=== PATIENT | male | born 1960 | race Caucasian/White ===

== ENCOUNTER 2020-08-23 23:50 | Inpatient (IN) | payer MEDICARE, MEDICAID, SELFPAY ==
[2020-08-24 00:11] VITALS: BP 165/76; PULSE 80; RESP 15; TEMP 36.9; O2SAT 94
[2020-08-24 00:41] VITALS: BMI 26.6
--- NOTE | 2020-08-24 04:28 | PC.NURSE ---
Skin assessment revealed no wounds or injuries.
[2020-08-24 06:00] VITALS: BP 146/72; PULSE 75; RESP 15; TEMP 36.8; O2SAT 96
[2020-08-24] MEDS: levothyroxine 125 mcg Tablet PO (08:58)
[2020-08-24] MEDS: lisinopril 10 mg Tablet PO (08:58)
--- NOTE | 2020-08-24 09:03 | PC.NURSE ---
refused scheduled Gabapentin, zyprexa, lexapro
[2020-08-24 14:00] VITALS: BP 114/73; PULSE 78; RESP 18; TEMP 36.2; O2SAT 93
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
[2020-08-24 19:48] VITALS: BP 91/55; PULSE 72; RESP 15; TEMP 37; O2SAT 93
[2020-08-24] MEDS: gabapentin 100 mg Capsule 200 MG PO (20:51)
[2020-08-24] MEDS: ARIPiprazole 10 mg Tablet PO (20:51)
[2020-08-24] MEDS: atorvastatin 40 mg Tablet 20 MG PO (20:51)
--- NOTE | 2020-08-25 03:32 | PC.NURSE ---
pm ASSESSMENT PT REPORTS BILATERAL BURNING PAINS IN HIS ANKLES, HE BELIEVES IT IS GOUT HOWEVER, THE FEET ARE CALLOUSED, THE ANKLES APPEAR TO HAVE SOCK LINE EDEMA, AND WHERE ARE SMALL SORES ON THE INSIDE OF BOTH ANKLES THAT APPEAR TO BE FROM THE PATIENT SCRATCHING AT THEM. PT DENIES AH/VH, HE IS IN A JOVIAL MOOD, INTERACTING WITH NURSING STAFF APPROPRIATELY. PT IS UNABLE TO FOCUS WELL DURING CONVERSATION, EXPERIENCING FLIGHT OF IDEAS, AND HIS OPINIONS OFTEN FOLLOW HIS TRAIN OF THOUGHT. PT DENIES SI/HI. V/S ARE WNL;HEART.LUNG SOUNDS ARE WNL. PT DID NOT WANT TO TAKE ABILIFY FOR THE MED NURSE THIS EVENING, HE STATED, IT CAUSES ME TARDIVE DYSKINESIA, BUT FOLLOWED THAT BY ITS NOT LIFELONG, IT CAN STOP. AFTER DISCUSSION, THE PATIENT ALLOWED MED NURSE TO ADMINISTER MEDICATION. PT WENT TO BED, HE HAS RESTED TO THIS POINT IN TIME, WILL CONTINUE TO OBSERVE.
--- NOTE | 2020-08-25 03:55 | PC.NURSE ---
Before administering patient his medication, I wanted to verify that the patient was going to take his medication. I educated him on what medications were and what they treated. I let him know that doctor wanted to start him on Abilify. Patient stated that he would take it , but it gives me Tardive dysconsia .
[2020-08-25 05:50] VITALS: BP 132/85; PULSE 78; RESP 15; TEMP 36.3; O2SAT 92
[2020-08-25] MEDS: gabapentin 100 mg Capsule PO (08:05)
[2020-08-25] MEDS: levothyroxine 125 mcg Tablet PO (08:05)
[2020-08-25] MEDS: ARIPiprazole 10 mg Tablet PO (08:05)
[2020-08-25] MEDS: clotrimazole-betamethasone cream 15gm 1 APPLIC TOPICAL ×2 (08:05→21:39)
[2020-08-25] MEDS: lisinopril 10 mg Tablet PO (08:05)
[2020-08-25] MEDS: escitalopram 10 mg Tablet 20 MG PO (08:05)
--- NOTE | 2020-08-25 13:04 | P.PN_ITS ---
Subjective NPU Subjective: Interval history: Patient is lying in bed after lunch, reports that he feels tired States that he has had some depressive symptoms today, denies any suicidal ideation Denies any auditory or visual hallucinations, denies any delusions Reports being compliant with medication, denies any medication side effects Patient had reported that he would take Abilify and subsequently was agreeable with first dose this morning Per nurse report, occasionally intrusive but improving and redirectable Mental Status Exam MSE Comments: Lying in bed under his covers, calm, cooperative, interactive, good eye contact Psychomotor activity is neither increased nor decreased, no agitation Speech is normal rate, normal volume, spontaneous, not pressured I feel okay, congruent, not labile Alert and oriented to person, type of place, time, not to situation Memory and concentration appear to be fair per interview Thought process, linear, no flight of ideas, no looseness of association Thought content, no stated delusions, does not appear to be attending to any internal stimuli, no suicidal or homicidal ideation Insight and judgment appear to be limited Vitals/I&O/Wt Last Vital Signs Temp 97.3 F L 08/25/20 05:50 Pulse 78 08/25/20 05:50 Resp 15 08/25/20 05:50 BP 132/85 08/25/20 05:50 Pulse Ox 92 08/25/20 05:50 Weight last 48 hrs Weight 88.904 kg A&P Assessment and plan (1) Psychotic disorder: Status: Acute Qualifiers: Psychosis type: unspecified psychosis type Qualified Code(s): F29 - Unspecified psychosis not due to a substance or known physiological condition (2) Cannabis abuse: Status: Acute Additional A&P Information Patient has been agreeable to start Abilify taking his first dose this morning, some improvement in mood, decrease in intrusive behavior CONTINUE current medication, continue to monitor Involuntary Hold Information 96 Hour Hold: 96 Hour Involuntary Admission: No Attestations NPU Medical Necessity Statement*: Continues to require psychiatric hospitalization for medication stabilization, coordination for safe discharge Coding Level of Care 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
[2020-08-25 13:23] VITALS: BP 93/58; PULSE 74; RESP 16; TEMP 36.9; O2SAT 97
[2020-08-25] MEDS: gabapentin 100 mg Capsule 200 MG PO (21:38)
[2020-08-25] MEDS: atorvastatin 40 mg Tablet 20 MG PO (21:38)
[2020-08-25 22:00] VITALS: BP 121/77; PULSE 74; RESP 18; TEMP 36.4; O2SAT 97
[2020-08-26 06:00] VITALS: BP 128/75; PULSE 75; RESP 19; TEMP 36.8; O2SAT 97
[2020-08-26] MEDS: ARIPiprazole 10 mg Tablet PO (09:06)
[2020-08-26] MEDS: lisinopril 10 mg Tablet PO (09:06)
[2020-08-26] MEDS: gabapentin 100 mg Capsule PO (09:06)
[2020-08-26] MEDS: benztropine 1 mg Tablet PO (09:07)
[2020-08-26] MEDS: levothyroxine 125 mcg Tablet PO (09:07)
[2020-08-26] MEDS: escitalopram 10 mg Tablet 20 MG PO (09:07)
--- NOTE | 2020-08-26 11:10 | PM.NPN ---
Subjective NPU Subjective: Interval history: Reports improving mood, denies any interval suicidal ideation Denies any interval irritability or anger Denies any interval psychotic symptoms Reports being compliant with medication and denies any medication side effects Mental Status Exam MSE Comments: Sitting up on his bed, appears stated age, appropriately groomed, calm, cooperative, interactive, good eye contact Psychomotor activity is neither increased nor decreased, no agitation Speech is normal rate, normal volume, spontaneous, not pressured I feel good, full range, not labile Alert and oriented to person, type of place, time, not to situation Memory and concentration appear to be fair per interview Thought process, linear, no flight of ideas, no looseness of association Thought content, no stated delusions, no hallucinations, no suicidal or homicidal ideation Insight and judgment appear to be limited Vitals/I&O/Wt Last Vital Signs Temp 98.2 F 08/26/20 06:00 Pulse 75 08/26/20 06:00 Resp 19 H 08/26/20 06:00 BP 128/75 08/26/20 06:00 Pulse Ox 97 08/26/20 06:00 A&P Assessment and plan (1) Psychotic disorder: Status: Acute Qualifiers: Psychosis type: unspecified psychosis type Qualified Code(s): F29 - Unspecified psychosis not due to a substance or known physiological condition (2) Cannabis abuse: Status: Acute Additional A&P Information Ongoing improvement in mood and psychotic symptoms CONTINUE current medication, continue to monitor Involuntary Hold Information 96 Hour Hold: 96 Hour Involuntary Admission: No Attestations NPU Medical Necessity Statement*: Requires psychiatric hospitalization for medication stabilization, coordination for safe discharge Coding Level of Care Code Acute Circuit Board Inspector for [employer]errero Diagnoses Psychotic disorder F29 Psychosis type: unspecified psychosis type Cannabis abuse F12.10
[2020-08-26 13:12] VITALS: BP 99/62; PULSE 76; RESP 16; TEMP 36.9; O2SAT 96
[2020-08-26] MEDS: atorvastatin 40 mg Tablet 20 MG PO (20:24)
[2020-08-26] MEDS: gabapentin 100 mg Capsule 200 MG PO (20:25)
[2020-08-26] MEDS: clotrimazole-betamethasone cream 15gm 1 APPLIC TOPICAL (20:27)
[2020-08-26 22:00] VITALS: BP 106/63; PULSE 66; RESP 18; TEMP 36.8; O2SAT 97
[2020-08-27 06:00] VITALS: BP 120/78; PULSE 67; RESP 18; TEMP 36.8; O2SAT 99
[2020-08-27] MEDS: clotrimazole-betamethasone cream 15gm 1 APPLIC TOPICAL ×2 (08:26→20:26)
[2020-08-27] MEDS: escitalopram 10 mg Tablet 20 MG PO (08:26)
[2020-08-27] MEDS: ARIPiprazole 10 mg Tablet PO (08:26)
[2020-08-27] MEDS: levothyroxine 125 mcg Tablet PO (08:26)
[2020-08-27] MEDS: lisinopril 10 mg Tablet PO (08:26)
[2020-08-27] MEDS: gabapentin 100 mg Capsule PO (08:59)
--- NOTE | 2020-08-27 12:57 | PM.NPN ---
Subjective NPU Subjective: Interval history: Continues to report improving mood, reports no interval irritability or anger Denies any interval depressed symptoms, denies any suicidal ideation Per nurse report, less pressured, no interval behavioral disturbances Reports being compliant with his medication, denies any medication side effects Mental Status Exam MSE Comments: Lying in his bed, appropriately groomed, calm, cooperative, interactive, good eye contact Psychomotor activity is neither increased nor decreased, no agitation Speech is normal rate, normal volume, spontaneous, not pressured Okay, full range, not labile Alert and oriented to person, type of place, time, not to situation Memory and concentration appear to be fair per interview Thought process, linear, no flight of ideas, no looseness of association Thought content, no stated delusions, no hallucinations, no suicidal or homicidal ideation Insight and judgment appear to be limited Vitals/I&O/Wt Last Vital Signs Temp 98.2 F 08/27/20 06:00 Pulse 67 08/27/20 06:00 Resp 18 08/27/20 06:00 BP 120/78 08/27/20 06:00 Pulse Ox 99 08/27/20 06:00 A&P Assessment and plan (1) Psychotic disorder: Status: Acute Qualifiers: Psychosis type: unspecified psychosis type Qualified Code(s): F29 - Unspecified psychosis not due to a substance or known physiological condition (2) Cannabis abuse: Status: Acute Additional A&P Information Improving CONTINUE current medication, continue to monitor Involuntary Hold Information 96 Hour Hold: 96 Hour Involuntary Admission: No Attestations NPU Medical Necessity Statement*: Continues to require psychiatric hospitalization for medication stabilization, coordination for safe discharge Coding Level of Care Code Acute Residential Service Technician for [facility] Marla Diagnoses Psychotic disorder F29 Psychosis type: unspecified psychosis type Cannabis abuse F12.10
[2020-08-27 13:32] VITALS: BP 113/74; PULSE 76; RESP 16; TEMP 36.3; O2SAT 97
[2020-08-27] MEDS: gabapentin 100 mg Capsule 200 MG PO (20:26)
[2020-08-27] MEDS: atorvastatin 40 mg Tablet 20 MG PO (20:26)
[2020-08-27 20:50] VITALS: BP 136/77; PULSE 73; RESP 18; TEMP 36.7; O2SAT 96
[2020-08-28 05:16] VITALS: BMI 26.6
[2020-08-28 06:00] VITALS: BP 107/76; PULSE 94; RESP 17; TEMP 36.2; O2SAT 98
[2020-08-28] MEDS: ARIPiprazole 10 mg Tablet PO (08:24)
[2020-08-28] MEDS: escitalopram 10 mg Tablet 20 MG PO (08:25)
[2020-08-28] MEDS: clotrimazole-betamethasone cream 15gm 1 APPLIC TOPICAL ×2 (08:25→21:04)
[2020-08-28] MEDS: gabapentin 100 mg Capsule PO (08:25)
[2020-08-28] MEDS: lisinopril 10 mg Tablet PO (08:25)
[2020-08-28] MEDS: levothyroxine 125 mcg Tablet PO (08:25)
--- NOTE | 2020-08-28 10:46 | P.PN_ITS ---
Subjective NPU Subjective: Interval history: Continues to report stable mood, denies any interval psychotic symptoms Makes no delusional statements Denies any interval depressive symptoms, denies any interval suicidal ideation Reports being compliant with this medication, denies any medication side effects Per staff report, no interval behavioral disturbances Mental Status Exam MSE Comments: Standing in the hallway, calm, cooperative, appropriately groomed and dressed, good eye contact Psychomotor activity is neither increased nor decreased, no agitation Speech is normal rate, normal volume, spontaneous, not pressured Good, full range, not labile Alert and oriented to person, type of place, time, not to situation Memory and concentration appear to be fair per interview Thought process, linear, no flight of ideas, no looseness of association Thought content, no stated delusions, no hallucinations, no suicidal or homicidal ideation Insight and judgment appear to be limited Vitals/I&O/Wt Last Vital Signs Temp 97.2 F L 08/28/20 06:00 Pulse 94 08/28/20 06:00 Resp 17 08/28/20 06:00 BP 107/76 08/28/20 06:00 Pulse Ox 98 08/28/20 06:00 Weight last 48 hrs Weight 88.904 kg A&P Assessment and plan (1) Psychotic disorder: Status: Acute Qualifiers: Psychosis type: unspecified psychosis type Qualified Code(s): F29 - Unspecified psychosis not due to a substance or known physiological condition (2) Cannabis abuse: Status: Acute Additional A&P Information Sustained improvement, anticipate discharge tomorrow CONTINUE current medication, continue to monitor Involuntary Hold Information 96 Hour Hold: 96 Hour Involuntary Admission: No Attestations NPU Medical Necessity Statement*: Continues to require psychiatric hospitalization for medication stabilization, coordination for safe discharge Coding Level of Care Code Acute Lay Midwife for [facility] Diagnoses Psychotic disorder F29 Psychosis type: unspecified psychosis type Cannabis abuse F12.10
[2020-08-28 13:37] VITALS: BP 135/74; PULSE 93; RESP 18; TEMP 36.9
[2020-08-28] MEDS: acetaminophen 325 mg Tablet 650 MG PO (16:24)
[2020-08-28] MEDS: gabapentin 100 mg Capsule 200 MG PO (21:04)
[2020-08-28] MEDS: atorvastatin 40 mg Tablet 20 MG PO (21:05)
[2020-08-28] MEDS: trazodone 50 mg Tablet PO (21:05)
[2020-08-28 21:24] VITALS: BP 135/84; PULSE 80; RESP 18; TEMP 36.4; O2SAT 96
--- NOTE | 2020-08-28 23:39 | PC.NURSE ---
Patient requested Trazodone for sleep at 20:30. Trazodone 50mg PO given with H.S. meds.
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
[2020-08-29 06:00] VITALS: BP 126/77; PULSE 85; RESP 16; TEMP 36.2; O2SAT 98
[2020-08-29] MEDS: escitalopram 10 mg Tablet 20 MG PO (08:02)
[2020-08-29] MEDS: ARIPiprazole 10 mg Tablet PO (08:02)
[2020-08-29] MEDS: lisinopril 10 mg Tablet PO (08:02)
[2020-08-29] MEDS: gabapentin 100 mg Capsule PO (08:02)
[2020-08-29] MEDS: levothyroxine 125 mcg Tablet PO (08:02)
[2020-08-29] MEDS: clotrimazole-betamethasone cream 15gm 1 APPLIC TOPICAL (08:55)
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
[2020-08-29 09:56] VITALS: BP 126/77; PULSE 85; RESP 16; TEMP 36.2; O2SAT 98
== END 2020-08-29 12:08 | disposition home or self-care (01) | DRG 885 ==
PROVIDERS: Admitting Provider Psychiatry & Neurology Psychiatry; Visit Provider Psychiatry & Neurology Psychiatry
DX: F23 Brief psychotic disorder (principal); F12.10 Cannabis abuse, uncomplicated